=== PATIENT | female | born 1965 | race Caucasian/White ===

== ENCOUNTER → 2018-05-25 08:19 | Outpatient (CLI) | payer BC ==
[2013-07-14 19:47] VITALS: BMI 28.2
[~2018-05-25 08:19] MED LIST: ASPIRIN325 MG PO; BENICAR20 MG PO; CHANTIX 1 MG TAB1 MG PO; CLEOCIN HCL300 MG PO; CRESTOR20 MG PO; LOPRESSOR25 MG PO; ULTRAM50 MG PO
== END | disposition home or self-care (01) ==
LOC: D.HCCARDIO 08:19
PROVIDERS: ATTEND Internal Medicine Cardiovascular Disease
DX: I35.1 Nonrheumatic aortic (valve) insufficiency (principal)